=== PATIENT | male | born 1970 | race Caucasian/White ===

== ENCOUNTER 2017-01-06 23:51 | Emergency (ER) | payer OTHER ==
[~2017-01-06] VITALS: Ht 185.4 cm; Wt 84.2 kg
[~2017-01-06 23:51] MED LIST: CYCL-36 PO
[2017-01-07 00:57] VITALS: BP 136/87; PULSE 74; RESP 18; TEMP 97.5; O2SAT 97
== END 2017-01-07 03:43 | disposition left against medical advice (07) ==
LOC: PHED 23:51
DX: R10.9 Unspecified abdominal pain (principal)
CPT/HCPCS: 99281